=== PATIENT | female | born 1975 | race Caucasian/White ===

== ENCOUNTER 2019-04-15 03:57 | Observation (INO) | payer BC, OTHER ==
[2019-04-15] MEDS ORDERED: SODIUM CHLORIDE 1,000 ML IV STA (04:20)
[2019-04-15] MEDS ORDERED: ACETAMINOPHEN 1000 MG/100 ML VIAL (NON FORMULARY) IVPB ONE (04:46)
--- NOTE | 2019-04-15 04:48 | PDOC ---
History of Present Illness - General Chief Complaint: Syncope/Near Syncope Stated Complaint: SYNCOPE,LACERATION Time Seen by Provider: 04/15/19 04:44 Past History - Past Medical History Allergies/Adverse Reactions: Allergies Allergy/AdvReac Type Severity Reaction Status Date / Time No Known Allergies Allergy Verified 04/15/19 04:16 Home Medications: Ambulatory Orders NK [No Known Home Medication] 05/08/14 COPD: No - Psycho Social/Smoking Cessation Hx Smoking Status: No Smoking History: Never smoked Have you smoked in the past 12 months: No Number of Cigarettes Smoked Daily: 0 Hx Alcohol Use: No Drug/Substance Use Hx: No Substance Use Type: None *Physical Exam - Vital Signs Last Vital Signs Temp Pulse Resp BP Pulse Ox 97.7 F 74 18 95/54 L 98 04/15/19 04:20 04/15/19 04:15 04/15/19 04:15 04/15/19 04:15 04/15/19 04:15 ED Treatment Course - LABORATORY CBC & Chemistry Diagram: 04/16/19 06:40 04/16/19 06:40 Medical Decision Making - Medical Decision Making 04/15/19 06:22 HPI: 43yo F hx "tachycardia" (palpitations x few yrs, told by expansion envelope maker hand due to "tachycardia," given unknown medication that pt does not take) presents from home c/o multiple superficial lacerations and pain to head and neck and L side body s/p syncope with fall w/glass in hand (breaking) this AM, with preceding vertigo, palpitations, and confusion. Hx palpitations xyrs, episodes lasting < 5min and go away on own, happen at anytime without inciting event both at rest and with exertion, worsening in frequency, intermittent. Denies hx syncope. Endorses frequent episodes of vertigo/light-headedness when gets up from sleep to go to the bathroom, but never had syncope. Pt was in [facility] yesterday, went to bed, woke up and went to kitchen for glass of water. In kitchen, pt suddenly felt vertigo, confusion, and palpitations and fell. Endorses LOC and confusion, doesn't remember exactly what happened. +head injury. Glass broke in hand and cut her L side of body on her L elbow/hand/thigh, believes no glass pieces inside her. Last tetanus unknown. Most pain to L hand and head and L neck. No pain meds tried. After falling in kitchen, pt believes she got up and went to the bathroom, but then she was so dizzy and confused she couldn't walk and had to crawl to son's bedroom to wake him up to help. Believes confused for multiple minutes after event. Denies seizure-like movements, incontinence, or tongue-biting. Denies fever, chills, fatigue, headache, dizziness, numbness/ tingling, weakness, vision changes, shortness of breath, cough, chest pain, palpitations, leg swelling, abdominal pain, blood in stool, diarrhea, constipation, nausea, vomiting, dysuria, hematuria, confusion. PCP - Armand San ROS: Constitutional: Negative for chills, fever, fatigue, diaphoresis. HENT: Negative for sore throat, rhinorrhea, congestion. Eyes: Negative for visual disturbance. Respiratory: Negative for shortness of breath, cough, and wheezing. Cardiovascular: Positive for palpitations. Negative for chest pain, and leg swelling. Gastrointestinal: Negative for abdominal pain, blood in stool, constipation, diarrhea, nausea, and vomiting. Genitourinary: Negative for dysuria, flank pain, and hematuria. Musculoskeletal: Positive for L-sided body pain, neck pain. Negative for myalgias, back pain. Skin: Positive for lacerations. Negative for rash. Neurological: Positive for headache, vertigo, light-headedness, syncope. Negative for focal weakness, numbness. Psychiatric/Behavioral: Negative for behavioral problems and confusion. PE: Gen: Alert, NAD, comfortable-appearing. HEENT: PERRL, EOMI, MMM, NC. Diffuse ecchymoses to entire L ear. No raccoon eyes or mireles signs. No conjunctival pallor. Sclera are non-icteric. CV: Regular rate and rhythm. No murmurs, rubs, or gallops. PULM: No resp distress. CTAB, no wheezes, rales, or rhonchi. ABD: soft, NT/ND, no rebound tenderness or guarding, no CVA tenderness. BACK: No TTP of c/t/l-spine. No step-offs or deformities. MSK: Pelvis stable, no TTP. No bony deformities. 2+ pulses in all extremities. NEURO: AAOx3. PERRL. CN 2-12 intact. 5/5 strength in all extremities. Sensation to light touch intact in all extremities. No pronator drift. No dysmetria. No dysdiadochokinesia. No abnormal nystagmus. EXTREMITIES: No cyanosis. No clubbing. No edema. No calf tenderness. Multiple superficial nonbleeding lacerations without foreign bodies to L hand, L elbow, and L thigh. LUE neurovascularly intact - 2+ pulses, sensation intact throughout, 5/5 strength. PSYCH: Normal mood and thought pattern. SKIN: Warm and dry. Normal capillary refill. No rashes. No jaundice. MDM: 43yo F hx "tachycardia" (palpitations x few yrs, told by expansion envelope maker hand due to "tachycardia," given unknown medication that pt does not take) presents from home with multiple superficial lacerations and pain to head and neck and L side body s/p syncope with fall w/glass in hand (breaking) this AM, with preceding vertigo, palpitations, and confusion. Soft BP 95/54 (baseline), other VSS, afebrile, neurologically intact, multiple superficial lacerations and ecchymoses to L side of body. Syncope most likely vasovagal or orthostatic due to presentation; however, hx unknown heart problem ("tachycardia" given unknown meds for) and palpitations concerning for cardiac etiology - r/o ACS/RI or arrythmias (WPW, LGL, Brugada, long/short QT interval, HOCM) with EKG and cardiac profile. Wells 0, PERC rules out PE - no further testing indicated for PE. Also consider infectious etiologies, anemia, thyroid pathology, or metabolic derangements. Hysterectomy - no concern for . No seizure-like activity. Due to description of room spinning, also consider vertigo pathologies such as BPPV. No nystagmus, gait abnormalities, neurologic deficits, or dysdiadochokinesia concerning for central etiology of vertigo such as cerebellar stroke; no nystagmus at this time so HiNTS exam not indicated; no further testing indicated at this time. No hearing loss or tinnitus indicating labyrinthitis, meniere's disease, or CN VIII tumor. Due to confusion, LOC, and significant bruising and e/o trauma on physical exam , obtain CTs of head/c-spine/face to r/o fx. L hand pain and lacerations: superficial, neurovascularly intact, moving all fingers/joints, no e/o tendon injury, XR to r/o retained glass and fx -CBC,CMP,Mg,Phos,Cardiac profile,TSH,UA/UC -CXR -EKG: NSR, 67bpm, QTc 431ms, normal intervals, no TWIs, abnormal ST segment consistent with early repolarization. No e/o acute ischemia, arrhythmia, Tom- Parkinson-White (delta wave), Vppv-Pbvljs-Loxdkk (shortened MN interval), Brugada syndrome, long or short QT interval, HOCM -CT head/c-spine/face -XR L hand -Tylenol for pain -Tetanus (last unknown) -Dispo: likely admit tele obs for syncope eval 04/15/19 06:50 Labs reviewed. No concerning findings. CXR reviewed: no acute pathology XR hand: no e/o large opaque retained body or fx CBC,CMP WBC 5.0 K/mm3 (4.0-10.0) 04/15/19 04:35 RBC 3.96 M/mm3 (3.60-5.2) 04/15/19 04:35 Hgb 11.5 GM/dL (10.7-15.3) 04/15/19 04:35 Hct 35.0 % (32.4-45.2) 04/15/19 04:35 MCV 88.4 fl (80-96) 04/15/19 04:35 MCH 29.1 pg (25.7-33.7) 04/15/19 04:35 MCHC 33.0 g/dl (32.0-36.0) 04/15/19 04:35 RDW 14.3 % (11.6-15.6) 04/15/19 04:35 Plt Count 183 K/MM3 (134-434) 04/15/19 04:35 MPV 9.1 fl (7.5-11.1) 04/15/19 04:35 Absolute Neuts (auto) 3.1 K/mm3 (1.5-8.0) 04/15/19 04:35 Neutrophils % 61.5 % (42.8-82.8) 04/15/19 04:35 Lymphocytes % 29.2 % (8-40) D 04/15/19 04:35 Monocytes % 5.8 % (3.8-10.2) 04/15/19 04:35 Eosinophils % 2.5 % (0-4.5) D 04/15/19 04:35 Basophils % 1.0 % (0-2.0) 04/15/19 04:35 Nucleated RBC % 0 % (0-0) 04/15/19 04:35 Sodium 139 mmol/L (136-145) 04/15/19 04:35 Potassium 4.0 mmol/L (3.5-5.1) 04/15/19 04:35 Chloride 106 mmol/L (98-107) 04/15/19 04:35 Carbon Dioxide 27 mmol/L (21-32) 04/15/19 04:35 Anion Gap 5 MMOL/L (8-16) L 04/15/19 04:35 BUN 19.9 mg/dL (7-18) H 04/15/19 04:35 Creatinine 0.9 mg/dL (0.55-1.3) 04/15/19 04:35 Est GFR (CKD-EPI)AfAm 89.50 04/15/19 04:35 Est GFR (CKD-EPI)NonAf 77.22 04/15/19 04:35 Random Glucose 82 mg/dL (74-106) 04/15/19 04:35 Calcium 8.6 mg/dL (8.5-10.1) 04/15/19 04:35 Phosphorus 4.2 mg/dL (2.5-4.9) 04/15/19 04:35 Magnesium 2.0 mg/dL (1.8-2.4) 04/15/19 04:35 Total Bilirubin 0.1 mg/dL (0.2-1) L 04/15/19 04:35 AST 44 U/L (15-37) H 04/15/19 04:35 ALT 33 U/L (13-61) 04/15/19 04:35 Alkaline Phosphatase 75 U/L (45-117) 04/15/19 04:35 Creatine Kinase 173 U/L (26-192) 04/15/19 04:35 Creatine Kinase Index 0.7 % (0.0-5.0) 04/15/19 04:35 CK-MB (CK-2) 1.3 ng/mL (0.5-3.6) 04/15/19 04:35 Troponin I < 0.02 ng/ml (0.00-0.05) 04/15/19 04:35 Total Protein 6.9 g/dl (6.4-8.2) 04/15/19 04:35 Albumin 3.3 g/dl (3.4-5.0) L 04/15/19 04:35 TSH 2.88 uIU/ml (0.358-3.74) 04/15/19 04:35 04/15/19 07:[address] head/c-spine/face and XR L hand, urine, and orthostatics, admit to hospitalist tele obs syncope. Pt signed out to oncoming team. Discharge - Discharge Information Problems reviewed: Yes Clinical Impression/Diagnosis: Syncope Qualifiers: Syncope type: unspecified Qualified Code(s): R55 - Syncope and collapse Condition: Improved Disposition: HOME - Follow up/Referral - Patient Discharge Instructions - Post Discharge Activity
--- NOTE | 2019-04-15 04:54 | PDOC ---
Attending Attestation - Resident Resident Name: Mylene Morales - ED Attending Attestation I have performed the following: I have examined & evaluated the patient, The case was reviewed & discussed with the resident, I agree w/resident's findings & plan, Exceptions are as noted - HPI HPI: 04/15/19 06:08 Ms. Lang is a 43 yo F who presents to the ER s/p syncopal episode Pt states she was in her usual state of health Went to sleep last night She awoke and went to the kitchen to get water She became vertiginous and fell to the ground, landing on her head and her left hand She then attempted to get to the bathroom? She was unable to get herself to standing and crawled to get help No preceding chest pain, palpitations, focal weakness or numbness No recent fevers or chills - Physicial Exam PE: 04/15/19 04:51 GENERAL: The patient is in no acute distress. HEENT: (+) head trauma, EOMI, PERRLA, left ear bruised bite nml NECK: Normal range of motion, supple, no midline tenderness to palpation LUNGS: Breath sounds equal, clear to auscultation bilaterally. No wheezes, and no crackles. HEART:Regular rate and rhythm, normal S1 and S2 without murmur, rub or gallop. ABDOMEN: Soft, nontender, normoactive bowel sounds. EXTREMITIES: Normal range of motion, no deformities noted NEUROLOGICAL: Cranial nerves II through XII grossly intact. Normal speech. No focal neurological deficits. SKIN: multiple abrasions of the hand and left leg, bruising noted of the left ear 04/15/19 06:10 - Medical Decision Making 04/15/19 04:51 EKG: Twelve-lead EKG was performed and reviewed by me. There is normal sinus rhythm with a normal rate of 67 bpm. The axis is normal. The intervals are normal. ST changes noted in II, III, aVF, v2, v3, v4, t wave inversion aVL 04/15/19 06:11 Laboratory Tests 04/15/19 04/15/19 04/15/19 04:35 04:35 04:35 WBC 5.0 Hgb 11.5 Hct 35.0 Plt Count 183 BUN 19.9 H Creatinine 0.9 Creatine Kinase 173 Creatine Kinase Index 0.7 CK-MB (CK-2) 1.3 Troponin I < 0.02 CT head: pending CT c spine: pending CT cervical spine: pending Tetanus given Will admit Clinical impression: Syncopal episode Head trauma Abrasions
[2019-04-15 04:55] LABS: EOS % 2.5 % (0-4.5); HEMOGLOBIN 11.5 GM/dL (10.7-15.3); LYMPH % 29.2 % (8-40); MCH 29.1 pg (25.7-33.7); MEAN CELL VOLUME 88.4 fl (80-96); MEAN PLT VOLUME 9.1 fl (7.5-11.1); MONO % 5.8 % (3.8-10.2); NEUT % 61.5 % (42.8-82.8); PLATELET COUNT 183 K/MM3 (134-434); RBC 3.96 M/mm3 (3.60-5.2); RDW 14.3 % (11.6-15.6)
[2019-04-15 05:29] LABS: ALBUMIN 3.3 g/dl (3.4-5.0); BILIRUBIN,TOTAL 0.1 mg/dL (0.2-1); BLOOD UREA NITROGEN 19.9 mg/dL (7-18); CALCIUM 8.6 mg/dL (8.5-10.1); CREATININE 0.9 mg/dL (0.55-1.3); TOT PROT 6.9 g/dl (6.4-8.2)
[2019-04-15] MEDS ORDERED: DIPHTH,PERTUSS(ACELL),TET 0.5 ML DISP.SYRIN IM ONE ×2 (05:47→06:04)
[2019-04-15] MEDS ORDERED: ACETAMINOPHEN INJECTION 100 ML IVPB ONE (05:57)
[2019-04-15 06:31] LABS: PHOSPHOROUS 4.2 mg/dL (2.5-4.9)
[2019-04-15] MEDS ORDERED: ACETAMINOPHEN 325 MG TABLET (FP) PO ONE (09:15)
--- NOTE | 2019-04-15 09:20 | PDOC ---
*Physical Exam - Vital Signs Last Vital Signs Temp Pulse Resp BP Pulse Ox 97.7 F 74 18 92/59 L 98 04/15/19 04:20 04/15/19 04:15 04/15/19 04:15 04/15/19 06:45 04/15/19 04:15 - Physical Exam General Appearance: Yes: Nourished, Appropriately Dressed, Thin HEENT: positive: EOMI, LINN, Normal ENT Inspection, Pharynx Normal Neck: positive: Trachea midline, Normal Thyroid, Supple Respiratory/Chest: positive: Lungs Clear, Normal Breath Sounds. negative: Crackles, Wheezing Cardiovascular: positive: Regular Rhythm, Regular Rate, S1, S2. negative: Murmur, Gallop/S3, Gallop/S4 Vascular Pulses: Dorsalis-Pedis (R): 2+, Doralis-Pedis (L): 2+ Gastrointestinal/Abdominal: positive: Normal Bowel Sounds, Soft. negative: Guarding Extremity: positive: Normal Inspection Neurologic: positive: Fully Oriented, Alert, Normal Mood/Affect ED Treatment Course - LABORATORY CBC & Chemistry Diagram: 04/15/19 04:35 04/15/19 04:35 - ADDITIONAL ORDERS Additional order review: Laboratory Results 04/15/19 04/15/19 04/15/19 04:35 04:35 04:35 Sodium 139 Potassium 4.0 Chloride 106 Carbon Dioxide 27 Anion Gap 5 L BUN 19.9 H Creatinine 0.9 Est GFR (CKD-EPI)AfAm 89.50 Est GFR (CKD-EPI)NonAf 77.22 Random Glucose 82 Calcium 8.6 Phosphorus 4.2 Magnesium 2.0 Total Bilirubin 0.1 L AST 44 H ALT 33 Alkaline Phosphatase 75 Creatine Kinase 173 Creatine Kinase Index 0.7 CK-MB (CK-2) 1.3 Troponin I < 0.02 Total Protein 6.9 Albumin 3.3 L TSH 2.88 04/15/19 04:35 RBC 3.96 MCV 88.4 MCHC 33.0 RDW 14.3 MPV 9.1 Neutrophils % 61.5 Lymphocytes % 29.2 D Monocytes % 5.8 Eosinophils % 2.5 D Basophils % 1.0 - Medications Given in the ED: ED Medications Discontinued Medications Generic Name Dose Route Start Last Admin Trade Name Freq PRN Reason Stop Dose Admin Acetaminophen 1,000 mg 04/15/19 04:46 04/15/19 06:09 Ofirmev Injection - IVPB 04/15/19 04:47 1,000 mg ONCE ONE Administration Diphtheria/Tetanus/Acell Pertussis 0.5 ml 04/15/19 05:47 04/15/19 06:10 Boostrix - IM 04/15/19 05:48 0.5 ml .ONCE ONE Administration Medical Decision Making - Medical Decision Making 43yo F hx "tachycardia" (palpitations x few yrs, told by bag making machine operator due to "tachycardia," given unknown medication that pt does not take) presents from home with multiple superficial lacerations and pain to head and neck and L side body s/p syncope with fall w/glass in hand (breaking) this AM, with preceding vertigo, palpitations, and confusion. Soft BP 95/54 (baseline), other VSS, afebrile, neurologically intact, multiple superficial lacerations and ecchymoses to L side of body. -CBC,CMP,Mg,Phos,Cardiac profile,TSH,UA/UC -CXR -EKG: NSR, 67bpm, QTc 431ms, normal intervals, no TWIs, abnormal ST segment consistent with early repolarization. No e/o acute ischemia, arrhythmia -CT head/c-spine/face -XR L hand -Tylenol for pain -Tetanus (last unknown) -Dispo: likely admit tele obs for syncope eval 04/15/19 06:50 Labs reviewed. No concerning findings. CXR reviewed: no acute pathology XR hand: no e/o large opaque retained body or fx CBC,CMP 04/15/19 09:21 Discharge - Discharge Information Problems reviewed: Yes Clinical Impression/Diagnosis: Syncope Qualifiers: Syncope type: unspecified Qualified Code(s): R55 - Syncope and collapse Condition: Stable - Admission Yes - Follow up/Referral Referrals: ON STAFF,NOT [Primary Care Provider] - - Patient Discharge Instructions - Post Discharge Activity
[2019-04-15] MEDS ORDERED: ACETAMINOPHEN 325 MG TABLET (FP) ONE (09:21)
--- NOTE | 2019-04-15 09:26 | HP ---
CHIEF COMPLAINT: fall, loss of consciousness PCP: HISTORY OF PRESENT ILLNESS: Patient is a 43 year old female with history of uterine fibroids (s/p hysterectomy), ?tachycardia, presents after a syncopal episode. Patient reports that she woke up approx 2AM feeling thirsty. She went to her kitchen to get a glass of water, and felt dizzy, with palpitations. Patient states she fell, and lost consciousness. When she awake, there was shattered glass, and blood from laceration on her left upper extremity. Denies loss of bowel. bladder tone. Patient states she has home camera that recorded the event, and she was on ground for approx 1 minute. Patient reports that she has followed up with peel oven tender Dr. Neal at [facility] who performed Stress test (reportedly negative), as well as Holter monitor which revealed tachycardia. Patient states she was prescribed unknown medication for this, however the medications have since been discontinued. Currently, patient feels in normal state of health. ER course was notable for: (1) EKG revealed (2) CT head, cervical spine negative for acute pathology. (3) Recent Travel: denies PAST MEDICAL HISTORY: uterine fibroids, ?tachycardia PAST SURGICAL HISTORY: hysterectomy Social History: Currently lives in home with her children. Smoking: denies Alcohol: Occasionally drinks 1-2 alcoholic drinks on holiday Drugs: denies Allergies No Known Allergies Allergy (Verified 04/15/19 04:16) HOME MEDICATIONS: Home Medications Medication Instructions Recorded NK [No Known Home Medication] 05/08/14 REVIEW OF SYSTEMS CONSTITUTIONAL: Absent: fever, chills, diaphoresis, generalized weakness, malaise, loss of appetite, weight change HEENT: Absent: rhinorrhea, nasal congestion, throat pain, throat swelling, difficulty swallowing, mouth swelling, ear pain, eye pain, visual changes CARDIOVASCULAR: Absent: chest pain, syncope, palpitations, irregular heart rate, lightheadedness , peripheral edema RESPIRATORY: Absent: cough, shortness of breath, dyspnea with exertion, orthopnea, wheezing, stridor, hemoptysis GASTROINTESTINAL: Absent: abdominal pain, abdominal distension, nausea, vomiting, diarrhea, constipation, melena, hematochezia GENITOURINARY: Absent: dysuria, frequency, urgency, hesitancy, hematuria, flank pain, genital pain MUSCULOSKELETAL: Admits: neck pain. Absent: myalgia, arthralgia, joint swelling, back pain. SKIN: Absent: rash, itching, pallor HEMATOLOGIC/IMMUNOLOGIC: Absent: easy bleeding, easy bruising, lymphadenopathy, frequent infections ENDOCRINE: Absent: unexplained weight gain, unexplained weight loss, heat intolerance, cold intolerance NEUROLOGIC: Admits: headache (resolved). Absent: focal weakness or paresthesias, dizziness, unsteady gait, seizure, mental status changes, bladder or bowel incontinence PSYCHIATRIC: Absent: anxiety, depression, suicidal or homicidal ideation, hallucinations. PHYSICAL EXAMINATION Vital Signs - 24 hr 04/15/19 04/15/19 04/15/19 04:15 04:20 06:45 Temperature 97.7 F Pulse Rate 74 Respiratory 18 Rate Blood Pressure 95/54 L Blood Pressure 92/59 L [Left Arm] O2 Sat by Pulse 98 Oximetry (%) GENERAL: Awake, alert, and fully oriented, in no acute distress. HEAD: Normal with no signs of trauma. EYES: Pupils equal, round and reactive to light, extraocular movements intact, sclera anicteric, conjunctiva clear. No lid lag. EARS, NOSE, THROAT: Ears normal, nares patent, oropharynx clear without exudates. Moist mucous membranes. NECK: Normal range of motion, supple without lymphadenopathy, JVD, or masses. LUNGS: Breath sounds equal, clear to auscultation bilaterally. No wheezes, and no crackles. No accessory muscle use. HEART: Regular rate and rhythm, normal S1 and S2 without murmur, rub or gallop. ABDOMEN: Soft, nontender, not distended, normoactive bowel sounds, no guarding, no rebound, no masses. No hepatomegaly or splenomegaly. MUSCULOSKELETAL: Normal range of motion at all joints. No bony deformities or tenderness. No CVA tenderness. UPPER EXTREMITIES: 2+ pulses, warm, well-perfused. No cyanosis. No clubbing. No peripheral edema. LOWER EXTREMITIES: 2+ pulses, warm, well-perfused. No calf tenderness. No peripheral edema. NEUROLOGICAL: Cranial nerves II-XII intact. Normal speech. Strength 5/5 bilateral upper and lower extremities. Sensation grossly intact bilaterally. PSYCHIATRIC: Cooperative. Good eye contact. Appropriate mood and affect. SKIN: Warm, dry. Laceration at left hand and left elbow Laboratory Results - last 24 hr 04/15/19 04/15/19 04/15/19 04:35 04:35 04:35 WBC 5.0 RBC 3.96 Hgb 11.5 Hct 35.0 MCV 88.4 MCH 29.1 MCHC 33.0 RDW 14.3 Plt Count 183 MPV 9.1 Absolute Neuts (auto) 3.1 Neutrophils % 61.5 Lymphocytes % 29.2 D Monocytes % 5.8 Eosinophils % 2.5 D Basophils % 1.0 Nucleated RBC % 0 Sodium 139 Potassium 4.0 Chloride 106 Carbon Dioxide 27 Anion Gap 5 L BUN 19.9 H Creatinine 0.9 Est GFR (CKD-EPI)AfAm 89.50 Est GFR (CKD-EPI)NonAf 77.22 Random Glucose 82 Calcium 8.6 Phosphorus Magnesium Total Bilirubin 0.1 L AST 44 H ALT 33 Alkaline Phosphatase 75 Creatine Kinase 173 Creatine Kinase Index 0.7 CK-MB (CK-2) 1.3 Troponin I < 0.02 Total Protein 6.9 Albumin 3.3 L TSH 04/15/19 04:35 WBC RBC Hgb Hct MCV MCH MCHC RDW Plt Count MPV Absolute Neuts (auto) Neutrophils % Lymphocytes % Monocytes % Eosinophils % Basophils % Nucleated RBC % Sodium Potassium Chloride Carbon Dioxide Anion Gap BUN Creatinine Est GFR (CKD-EPI)AfAm Est GFR (CKD-EPI)NonAf Random Glucose Calcium Phosphorus 4.2 Magnesium 2.0 Total Bilirubin AST ALT Alkaline Phosphatase Creatine Kinase Creatine Kinase Index CK-MB (CK-2) Troponin I Total Protein Albumin TSH 2.88 ASSESSMENT/PLAN: Patient is a 43 year old female with history of uterine fibroids (s/p hysterectomy), tachycardia, presents after a syncopal episode. Syncopal episode -Unclear likely vasovagal. Patient admits prior cardiac workup which appears negative with exception of unclear tachycardia. Patient with reported negative orthostatics in ED. Less likely seizure activity as no jerking motions noted upon recording of syncopal episode. Negative bowel/ bladder incontinence. -CT head, cervical spine, facial bones negative for acute pathology -Hand Xray reveals no foreign body, free air, or fracture. -EKG reveals normal sinus rhythm with early repolarization. -Initial troponin 0.02 x2 -Telemetry observation -Cardiology evaluation (Dr. Serra) appreciated -Cardiac transthoracic ECHO FEN -No IV fluids indicated. -Follow BMP -Regular diet Prohylaxis -Lovenox 40mg subq daily Disposition -Telemetry observation Visit type - Emergency Visit Emergency Visit: Yes ED Registration Date: 04/15/19 Care time: The patient presented to the Emergency Department on the above date and was hospitalized for further evaluation of their emergent condition. - New Patient This patient is new to me today: Yes Date on this admission: 04/15/19 - Critical Care Critical Care patient: No ATTENDING PHYSICIAN STATEMENT I saw and evaluated the patient. I reviewed the resident's note and discussed the case with the resident. I agree with the resident's findings and plan as documented. SUBJECTIVE: OBJECTIVE: ASSESSMENT AND PLAN:
[2019-04-15 10:09] LABS: URINE APPEARANCE CLEAR; URINE BILIRUBIN NEGATIVE (NEGATIVE); URINE COLOR YELLOW; URINE GLUCOSE (UA) NEGATIVE (NEGATIVE); URINE KETONE NEGATIVE (NEGATIVE); URINE LEUK ESTERASE NEGATIVE (NEGATIVE); URINE NITRITE NEGATIVE (NEGATIVE); URINE PROTEIN NEGATIVE (NEGATIVE); URINE UROBILINOGEN 0.2 mg/dL (0.2-1.0)
--- NOTE | 2019-04-15 11:34 | CON.CARD ---
Consult Consult Specialty:: cardio - History of Present Illness Chief Complaint: syncope History of Present Illness: 43 year old female here with fainting spell. woke up approx 2AM feeling thirsty. She went to her kitchen to get a glass of water, feeling woozy/dizzy while walking. awoke on floor with shattered glass around here, and blood from laceration on her left upper extremity. cannot recall when she noted palpitations, and whether occurred immediately prior to syncope or not--"i get them all the time". did not feel need to urinate. though often feels the palpitations and dizziness when gets up to urinate overnight. no sz stigmata/incontinence noted. Patient states she has home camera that recorded the event, and she was on ground for approx 1 minute. no seizure type jerking on the video she says. review of records from EP at [facility] ([facility]): presented to him early 2017 for frequent palpitations with associated dizziness/ LH. 9 day monitor done, showed inappropriate sinus tach to 130s bpm--correlated with palps/racing and dizziness. home phone based pulse up to 150s at time of sx's. due to baseline SBP 90s, he rec'd trial ivabridine--? how long she took before self-d/c'd. ETT done 2016, unremarkable. Echo not done VSs and labs in ER are all normal (systolic bp 90s-->100s) PMH: fibroids s/p ALBERT - Alcohol/Substance Use Hx Alcohol Use: No - Smoking History Smoking history: Never smoked Have you smoked in the past 12 months: No Aproximately how many cigarettes per day: 0 Home Medications - Allergies Allergies/Adverse Reactions: Allergies Allergy/AdvReac Type Severity Reaction Status Date / Time No Known Allergies Allergy Verified 04/15/19 04:16 - Home Medications Home Medications: Ambulatory Orders NK [No Known Home Medication] 05/08/14 Vital Signs: Vital Signs Temperature 97.7 F 04/15/19 04:20 Pulse Rate 73 04/15/19 10:56 Respiratory Rate 18 04/15/19 10:56 Blood Pressure 100/65 04/15/19 10:56 O2 Sat by Pulse Oximetry (%) 99 04/15/19 10:56 - Other Data Labs, Other Data: CBC, BMP 04/15/19 04:35 04/15/19 04:35 Troponin, BNP 04/15/19 04:35 Troponin I < 0.02 Troponin, BNP 04/15/19 04:35 Troponin I < 0.02 Assessment/Plan ECG: NSR, normal intervals incl QT. no delta wave. diffuse ST elevations in early repol pattern--similar to prior though early repol findings more pronounced CXR: clear lungs/pleura ETT 2016 ([facility]): >12 mets, "excellent exercise tolerance", + dizziness sx's, HR to 150s, "appropriate BP and HR response", unremarkable ST segments, no arrhythmia syncope: -preceded by palpitations -suspect vasovagal or orthostasis given occurred in middle of the night when walked to kitchen from bed -will review outside records ([facility]) re: prior w/u and prior history -ECG normal intervals, + early repol findings diffusely -d/w'd Dr. Neal (EP): she will be monitored on tele here and have echo on Wednesday -if all testing here is benign, she will f/u with EP for prolonged holter/event monitoring -check orthostatics
--- NOTE | 2019-04-15 12:15 | PN ---
Teaching Attending Note Name of Resident: González Steele ATTENDING PHYSICIAN STATEMENT I saw and evaluated the patient. I reviewed the resident's note and discussed the case with the resident. I agree with the resident's findings and plan as documented. SUBJECTIVE: Feels well currently. No lightheadedness/dizziness/CP/palpitations currently. No limb numbness/weakness/tingling. No POOL/visual disturbance. OBJECTIVE: Afebrile, Hemodynamically Stable. Last Vital Signs Temp Pulse Resp BP Pulse Ox 97.7 F 73 18 100/65 99 04/15/19 04:20 04/15/19 10:56 04/15/19 10:56 04/15/19 10:56 04/15/19 10:56 HEENT - Atraumatic, Normocephalic. Heart - S1, S2, RRR Lungs - clear to auscultation. Abdomen - Soft, non-tender. Bowel Sounds normal. Extremities - no edema, no calf tenderness. Small laceration to palm of L hand Neuro - AAO x 3. Tone/Power normal all extremities. Laboratory Results - last 24 hr 04/15/19 04/15/19 04/15/19 04:35 04:35 04:35 WBC 5.0 RBC 3.96 Hgb 11.5 Hct 35.0 MCV 88.4 MCH 29.1 MCHC 33.0 RDW 14.3 Plt Count 183 MPV 9.1 Absolute Neuts (auto) 3.1 Neutrophils % 61.5 Lymphocytes % 29.2 D Monocytes % 5.8 Eosinophils % 2.5 D Basophils % 1.0 Nucleated RBC % 0 Sodium 139 Potassium 4.0 Chloride 106 Carbon Dioxide 27 Anion Gap 5 L BUN 19.9 H Creatinine 0.9 Est GFR (CKD-EPI)AfAm 89.50 Est GFR (CKD-EPI)NonAf 77.22 Random Glucose 82 Calcium 8.6 Phosphorus Cancelled Magnesium Cancelled Total Bilirubin 0.1 L AST 44 H ALT 33 Alkaline Phosphatase 75 Creatine Kinase 173 Creatine Kinase Index 0.7 CK-MB (CK-2) 1.3 Troponin I < 0.02 Total Protein 6.9 Albumin 3.3 L TSH Cancelled Urine Color Urine Appearance Urine pH Ur Specific Sandborn Urine Protein Urine Glucose (UA) Urine Ketones Urine Blood Urine Nitrite Urine Bilirubin Urine Urobilinogen Ur Leukocyte Esterase 04/15/19 04/15/19 04:35 09:40 WBC RBC Hgb Hct MCV MCH MCHC RDW Plt Count MPV Absolute Neuts (auto) Neutrophils % Lymphocytes % Monocytes % Eosinophils % Basophils % Nucleated RBC % Sodium Potassium Chloride Carbon Dioxide Anion Gap BUN Creatinine Est GFR (CKD-EPI)AfAm Est GFR (CKD-EPI)NonAf Random Glucose Calcium Phosphorus 4.2 Magnesium 2.0 Total Bilirubin AST ALT Alkaline Phosphatase Creatine Kinase Creatine Kinase Index CK-MB (CK-2) Troponin I Total Protein Albumin TSH 2.88 Urine Color Yellow Urine Appearance Clear Urine pH 6.0 Ur Specific Sandborn 1.020 Urine Protein Negative Urine Glucose (UA) Negative Urine Ketones Negative Urine Blood Negative Urine Nitrite Negative Urine Bilirubin Negative Urine Urobilinogen 0.2 Ur Leukocyte Esterase Negative Current Medications Generic Name Dose Route Start Last Admin Trade Name Freq PRN Reason Stop Dose Admin Enoxaparin Sodium 40 mg 04/16/19 10:00 Lovenox - SQ DAILY MATT Sodium Chloride 1,000 mls @ 125 mls/hr 04/15/19 04:20 04/15/19 06:09 Normal Saline - IV 04/15/19 12:19 125 mls/hr ASDIR STA Administration Home Medications Medication Instructions Recorded NK [No Known Home Medication] 05/08/14 ASSESSMENT AND PLAN: 43 year old female with history of uterine fibroids (s/p hysterectomy), history of palpitations/tachycardia, previously worked up at [facility], presents after a syncopal episode at home while getting water in the middle of the night. Episode was preceeded by lightheadedness and palpitations. No CP/visual disturbance/diaphoresis, nausea. No bladder or bowel incontinence. 1. Syncope, etiology unclear, possibly vasovagal versus arrhythmogenic ( preceding palpitations) CT Head/C-Spine negative for acute findings ECG - NSR, early repolarization findings. Orthostatic vitals Telemetry observation, likely Echo (unable to perform on weekend, next avail 04/17) Cardiology evaluation. DVT Px - Lovenox SQ.
[2019-04-15 13:06] VITALS: BMI 19.5
[2019-04-15] MEDS ORDERED: ACETAMINOPHEN 325 MG TABLET (FP) PO PRN (15:47)
--- NOTE | 2019-04-15 23:15 | EKG ---
Test Reason : Blood Pressure : / mmHG Vent. Rate : 067 BPM Atrial Rate : 067 BPM P-R Int : 182 ms QRS Dur : 094 ms QT Int : 408 ms P-R-T Axes : 068 081 076 degrees QTc Int : 431 ms NORMAL SINUS RHYTHM EARLY REPOLARIZATION NORMAL ECG WHEN COMPARED WITH ECG OF 04-JUN-2009 21:15, NO SIGNIFICANT CHANGE WAS FOUND Confirmed by ZACH EWBB MD ([id number]) on 04/15/2019 11:14:49 PM Referred By: Confirmed By:ZACH WEBB MD
[2019-04-16 07:10] LABS: HEMATOCRIT 34.9 % (32.4-45.2); HEMOGLOBIN 11.5 GM/dL (10.7-15.3); MCH 29.2 pg (25.7-33.7); MCHC 33.1 g/dl (32.0-36.0); MEAN CELL VOLUME 88.5 fl (80-96); MEAN PLT VOLUME 9.1 fl (7.5-11.1); PLATELET COUNT 173 K/MM3 (134-434); RBC 3.94 M/mm3 (3.60-5.2); RDW 14.2 % (11.6-15.6)
[2019-04-16 07:42] LABS: BLOOD UREA NITROGEN 15.9 mg/dL (7-18); CALCIUM 8.8 mg/dL (8.5-10.1); CREATININE 0.8 mg/dL (0.55-1.3); POTASSIUM 4.1 mmol/L (3.5-5.1)
--- NOTE | 2019-04-16 09:58 | PN ---
Progress Note, Physician Chief Complaint: fainting History of Present Illness: feeling dizzy in bed this am, not severe/presyncopal. no palpitations. BP 80s at that time. no cp, sob, swelling - Current Medication List Current Medications: Active Medications Acetaminophen (Tylenol -) 650 mg PO Q6H PRN PRN Reason: PAIN LEVEL 1-5 Last Admin: 04/15/19 15:56 Dose: 650 mg Enoxaparin Sodium (Lovenox -) 40 mg SQ DAILY MATT - Objective Vital Signs: Vital Signs Temperature 98.0 F 04/16/19 06:20 Pulse Rate 80 04/16/19 06:20 Respiratory Rate 18 04/16/19 06:20 Blood Pressure 94/51 L 04/16/19 06:20 O2 Sat by Pulse Oximetry (%) 98 04/15/19 21:00 Constitutional: Yes: Well Nourished, No Distress, Calm Cardiovascular: Yes: Regular Rate and Rhythm, S1, S2. No: Gallop, Murmur Respiratory: Yes: Regular, CTA Bilaterally. No: Accessory Muscle Use, Rales Extremities: No: Cold Edema: No Neurological: Yes: Alert, Oriented Psychiatric: No: Agitated Labs: CBC, BMP 04/16/19 06:40 04/16/19 06:40 Assessment/Plan ECG: NSR, normal intervals incl QT. no delta wave. diffuse ST elevations in early repol pattern--similar to prior though early repol findings more pronounced CXR: clear lungs/pleura ETT 2016 ([facility]): >12 mets, "excellent exercise tolerance", + dizziness sx's, HR to 150s, "appropriate BP and HR response", unremarkable ST segments, no arrhythmia syncope: -preceded by palpitations -suspect vasovagal or orthostasis given occurred in middle of the night when walked to kitchen from bed -will review outside records ([facility]) re: prior w/u and prior history -ECG normal intervals, + early repol findings diffusely -d/w'd Dr. Neal (EP): she will be monitored on here and have echo on Wednesday -if all testing here is benign, she will f/u with EP for prolonged holter/event monitoring -not orthostatic here -baseline BP runs 90s per prior notes: has been 90s with early AM reading of 80s today--given no tachycardia at time of this hypotension and dizzy sx's, this is very likely neurocardiogenic etiology. rec'd trial of fludrocortisone 0.1 qd while here to assess sx response and, if she responds, for prevention of future syncope with injury. she and boyfriend decline new meds. IF ECHO OK TOMORROW, PLAN IS DISCHARGE WITH EP F/U
[2019-04-16] MEDS: ENOXAPARIN NA (PORCINE) 40 MG/0.4 ML DISP.SYRIN SQ SCH (10:30)
--- NOTE | 2019-04-16 19:08 | PN ---
Progress Note (short form) - Note Progress Note: SUBJECTIVE: Feeling dizzy this AM, SBP 80s. No limb numbness/weakness/tingling. No POOL/visual disturbance. OBJECTIVE: Afebrile, Borderline BP. Orthostatic vitals negative Last Vital Signs Temp Pulse Resp BP Pulse Ox 98.0 F 78 18 92/58 L 98 04/16/19 14:00 04/16/19 14:00 04/16/19 10:00 04/16/19 14:00 04/16/19 09:00 Heart - S1, S2, RRR Lungs - clear to auscultation. Abdomen - Soft, non-tender. Bowel Sounds normal. Extremities - no edema, no calf tenderness. Small laceration to palm of L hand Neuro - AAO x 3. Tone/Power normal all extremities. Laboratory Results - last 24 hr 04/16/19 04/16/19 06:40 06:40 WBC 4.0 RBC 3.94 Hgb 11.5 Hct 34.9 MCV 88.5 MCH 29.2 MCHC 33.1 RDW 14.2 Plt Count 173 MPV 9.1 Sodium 140 Potassium 4.1 Chloride 107 Carbon Dioxide 28 Anion Gap 5 L BUN 15.9 Creatinine 0.8 Est GFR (CKD-EPI)AfAm 103.19 Est GFR (CKD-EPI)NonAf 89.04 Random Glucose 86 Calcium 8.8 TSH 1.66 Current Medications Generic Name Dose Route Start Last Admin Trade Name Freq PRN Reason Stop Dose Admin Acetaminophen 650 mg 04/15/19 15:47 04/15/19 15:56 Tylenol - PO 650 mg Q6H PRN Administration PAIN LEVEL 1-5 Enoxaparin Sodium 40 mg 04/16/19 10:00 04/16/19 10:30 Lovenox - SQ 40 mg DAILY MATT Administration Home Medications Medication Instructions Recorded NK [No Known Home Medication] 05/08/14 ASSESSMENT AND PLAN: 43 year old female with history of uterine fibroids (s/p hysterectomy), history of palpitations/tachycardia, previously worked up at [place], presents after a syncopal episode at home while getting water in the middle of the night. Episode was preceded by lightheadedness and palpitations. No CP/visual disturbance/diaphoresis, nausea. No bladder or bowel incontinence. 1. Syncope, etiology unclear, possibly vasovagal versus arrhythmogenic ( preceding palpitations) CT Head/C-Spine negative for acute findings ECG - NSR, early repolarization findings. Continue Telemetry observation Echo in AM Cardiology evaluation appreciated - Recommended for trial of Fludrocortisone but declined as per Cardio. For follow up as out-patient for EP for prolonged holter/event monitoring. DVT Px - Lovenox SQ Visit type - Emergency Visit Emergency Visit: Yes ED Registration Date: 04/15/19 Care time: The patient presented to the Emergency Department on the above date and was hospitalized for further evaluation of their emergent condition. - New Patient This patient is new to me today: No - Critical Care Critical Care patient: No - Discharge Referral Referred to [facility] Med P[facility].: No
[2019-04-17 09:04] VITALS: BP 120/56; PULSE 75; TEMP 97.2
[2019-04-17] MEDS: ENOXAPARIN NA (PORCINE) 40 MG/0.4 ML DISP.SYRIN SQ SCH (09:56)
--- NOTE | 2019-04-17 11:21 | ECHO ---
Name: LOIS ALANIZ Exam:Adult Echocardiogram Study Date: 04/17/2019 09:07 AM Age: 43 yrs Height: 65 in Weight: 117 lb BSA: 1.6 m2 MMode/2D Measurements & Calculations IVSd: 0.83 cm Ao root diam: 2.4 cm LVIDd: 3.3 cm LA dimension: 2.5 cm LVIDs: 2.2 cm ACS: 1.9 cm LVPWd: 0.60 cm EDV(Teich): 44.1 ml LVOT diam: 1.8 cm ESV(Teich): 16.3 ml RV S Keven: 11.4 cm/sec Doppler Measurements & Calculations MV E max keven: 81.9 cm/sec Ao V2 max: 112.7 cm/sec MV A max keven: 75.5 cm/sec Ao max P.1 mmHg MV E/A: 1.1 Ao V2 mean: 82.2 cm/sec MV dec time: 0.21 sec Ao mean P.0 mmHg Ao V2 VTI: 24.9 cm ELISA(I,D): 1.7 cm2 ELISA(V,D): 2.0 cm2 LV V1 max P.3 mmHg MR max keven: 306.2 cm/sec LV V1 mean P.6 mmHg MR max P.5 mmHg LV V1 max: 91.3 cm/sec LV V1 mean: 59.4 cm/sec LV V1 VTI: 18.0 cm SV(LVOT): 43.4 ml TR max keven: 178.0 cm/sec TR max P.7 mmHg PA V2 max: 74.0 cm/sec PI end-d keven: 75.5 cm/sec PA max P.2 mmHg Med Peak E' Keven: 10.7 cm/sec Med E/e': 7.6 Lat Peak E' Keven: 10.9 cm/sec Lat E/e': 7.5 Procedure A complete two-dimensional transthoracic echocardiogram was performed (2D, M-mode, Doppler and color flow Doppler). Left Ventricle The left ventricle is normal in size. Left ventricular systolic function is normal. Ejection Fraction = 60- 65%. No regional wall motion abnormalities noted. Right Ventricle The right ventricle is normal size. The right ventricular systolic function is normal. Atria The left atrial size is normal. Right atrial size is normal. Mitral Valve There is mild mitral annular calcification. There is mild mitral regurgitation. Tricuspid Valve The tricuspid valve is normal in structure and function. There is mild tricuspid regurgitation. Right ventricular systolic pressure is normal. Aortic Valve There is mild aortic sclerosis.;. No aortic regurgitation is present. Pulmonic Valve The pulmonic valve is not well visualized. Great Vessels The aortic root is normal size. Pericardium/Pleura There is no pericardial effusion. Interpretation Summary The left ventricle is normal in size. Left ventricular systolic function is normal. No regional wall motion abnormalities noted. Ejection Fraction = 60-65%. The right ventricular systolic function is normal. The left atrial size is normal. Right atrial size is normal. There is mild mitral annular calcification. There is mild mitral regurgitation. There is mild tricuspid regurgitation. Right ventricular systolic pressure is normal. There is mild aortic sclerosis. There is no pericardial effusion. Steven Montejo MD 04/17/2019 11:20 AM
--- NOTE | 2019-04-17 12:55 | PN ---
Teaching Attending Note Name of Resident: Davide Waters ATTENDING PHYSICIAN STATEMENT I saw and evaluated the patient. I reviewed the resident's note and discussed the case with the resident. I agree with the resident's findings and plan as documented. SUBJECTIVE: Feels ok. No limb numbness/weakness/tingling. No POOL/visual disturbance. OBJECTIVE: Afebrile, Borderline BP. Orthostatic vitals negative Last Vital Signs Temp Pulse Resp BP Pulse Ox 97.2 F L 75 18 120/56 L 100 04/17/19 09:00 04/17/19 09:00 04/17/19 09:00 04/17/19 09:00 04/17/19 09:00 Heart - S1, S2, RRR Lungs - clear to auscultation. Abdomen - Soft, non-tender. Bowel Sounds normal. Extremities - no edema, no calf tenderness. Small laceration to palm of L hand Neuro - AAO x 3. LINN. No Nystagmus. Tone/Power normal all extremities. Current Medications Generic Name Dose Route Start Last Admin Trade Name Freq PRN Reason Stop Dose Admin Acetaminophen 650 mg 04/15/19 15:47 04/15/19 15:56 Tylenol - PO 650 mg Q6H PRN Administration PAIN LEVEL 1-5 Enoxaparin Sodium 40 mg 04/16/19 10:00 04/17/19 09:56 Lovenox - SQ Not Given DAILY MATT Home Medications Medication Instructions Recorded NK [No Known Home Medication] 05/08/14 ASSESSMENT AND PLAN: 43 year old female with history of uterine fibroids (s/p hysterectomy), history of palpitations/tachycardia, previously worked up at [place], presents after a syncopal episode at home while getting water in the middle of the night. Episode was preceded by lightheadedness and palpitations. No CP/visual disturbance/diaphoresis, nausea. No bladder or bowel incontinence. 1. Syncope, etiology unclear, possibly vasovagal versus arrhythmogenic ( preceding palpitations) CT Head/C-Spine negative for acute findings ECG - NSR, early repolarization findings. No telemonitoring events. Echo - normal LV function. Cardiology evaluation appreciated - Recommended for trial of Fludrocortisone but patient declined. For follow up as out-patient for EP for prolonged holter/ event monitoring. Medically and Neurologically stable for discharge in the care of her for out-patient Cardio/EP follow up.
--- NOTE | 2019-04-17 16:59 | DS ---
Physical Exam: SUBJECTIVE: Patient seen and examined. States that she felt dizzy during interview while sitting. Denies chest pain, SOB, abd pain, chills, fever. Complains that she has had intermittent headaches over the last few weeks. OBJECTIVE: Vital Signs Period Temp Pulse Resp BP Sys/Orellana Pulse Ox Last 24 Hr 97.2 F-97.8 F 69-86 18-20 94-120/56-83 98-100 PHYSICAL EXAM GENERAL: The patient is awake, alert, and fully oriented, in no acute distress. HEAD: Normal with no signs of trauma. EYES: PERRL, EOMI, no scleral icteris ENT: MMM NECK: Trachea midline, full range of motion, supple. LUNGS: Breath sounds equal, clear to auscultation bilaterally, no wheezes, no crackles, no accessory muscle use. HEART: Regular rate and rhythm, S1, S2 without murmur, rub or gallop. ABDOMEN: Soft, nontender, nondistended, normoactive bowel sounds, no guarding, no rebound EXTREMITIES: 2+ pulses, warm, well-perfused, no edema. NEUROLOGICAL: Normal speech, gait not observed. PSYCH: Normal mood, normal affect. SKIN: Warm, dry, normal turgor, no rashes or lesions noted. LABS HOSPITAL COURSE: Date of Admission:04/15/19 Date of Discharge: 04/17/19 43 year old female with history of uterine fibroids (s/p hysterectomy), tachycardia, presented to the ED after a syncopal episode. Admitted for a syncope workup. Patient had a CT of her head, cervical spine and facial bones completed which was negative for fractures and bleeding. CXR completed without evidence of pneumonia. Patient came in with a laceration on her left hand and had xrays completed which were negative for fracture or foreign bodies. Patient was seen by cardiology and had an ECHO completed. ECHO did not show any significant abnormalities. Patient was offered a trial of Fludrocortisone which she declined. Cardiac enzymes were negative on this admission. Cardiology recommended prolonged rhythm monitoring as outpatient. Patient discharged with recommendations to follow up with neurology and cardiology. Patient stable for discharge at this time. Minutes to complete discharge: 36 Discharge Summary Problems reviewed: Yes Reason For Visit: SYNCOPE Condition: Improved - Instructions Diet, Activity, Other Instructions: You presented to the hospital after fainting. You had imaging of your head, cervical spine, and facial bones completed which was negative for fractures or bleeding. You had an xray completed of your hand which was negative for any foreign bodies or fracture. You were seen by cardiology and had an ECHO completed. Cardiology recommended starting a trial of Fludrocortisone but you declined at this time. The results of your ECHO were without any significant abnormalities. Your cardiac enzymes were negative on this admission. Please follow up with the doctors recommended below for continuing care. Follow up with the following physicians: 1. Please follow up with your primary care provider within one week of discharge for further management of your medical conditions. 2. Please follow up with your ssis developer within one week of discharge, you were seen by cardiology here (Dr. Serra) who recommended follow up with your ssis developer for prolonged holter/event monitoring. 3. You complained of intermittent headaches/dizziness while admitted here. We recommend follow up with a neurologist. If you do not have a neurologist, a referral has been included for you. Activity and Diet 1. You are being discharged home. Recommend daily exercise to strengthen your muscles. 2. Please continue to drink plenty of fluids. Continue all your other medications as prescribed Please return to the ER if you have any signs or symptoms of chest pain, shortness of breath, uncontrollable fever, chills, nausea, vomiting, numbness, tingling, or weakness in any part of your body, changes in vision, or slurred speech. Please return to the ER if symptoms persist, worsen, or new symptoms arise. Referrals: Duke Serra MD [Staff Physician] - Allen Padron MD [Staff Physician] - ON STAFF,NOT [Primary Care Provider] - Disposition: HOME - Home Medications Comprehensive Discharge Medication List: Ambulatory Orders NK [No Known Home Medication] 05/08/14 This patient is new to me today: Yes Date on this admission: 04/17/19 Emergency Visit: Yes ED Registration Date: 04/15/19 Care time: The patient presented to the Emergency Department on the above date and was hospitalized for further evaluation of their emergent condition. Critical Care patient: No - Discharge Referral Referred to [facility] Med P.C.: No ATTENDING PHYSICIAN STATEMENT I saw and evaluated the patient. I reviewed the resident's note and discussed the case with the resident. I agree with the resident's findings and plan as documented. SUBJECTIVE: OBJECTIVE: ASSESSMENT AND PLAN:
== END 2019-04-17 14:35 | disposition home or self-care (01) ==
LOC: JER 03:57 → JERBED 09:26 → J4W 11:26
PROC: 3E033NZ Introduction of Analgesics, Hypnotics, Sedatives into Peripheral Vein, Percutaneous Approach (ICD-10-PCS; principal; 2019-04-15)
PROC: 3E0337Z Introduction of Electrolytic and Water Balance Substance into Peripheral Vein, Percutaneous Approach (ICD-10-PCS; 2019-04-15)
PROC: 3E0234Z Introduction of Serum, Toxoid and Vaccine into Muscle, Percutaneous Approach (ICD-10-PCS; 2019-04-15)
DX: R55 Syncope and collapse (principal); S61.412A Laceration without foreign body of left hand, initial encounter; S09.90XA Unspecified injury of head, initial encounter; W18.39XA Other fall on same level, initial encounter; Y93.89 Activity, other specified; Y92.008 Other place in unspecified non-institutional (private) residence as the place of occurrence of the external cause
CPT/HCPCS: 36415; 70450-TC; 70486-TC; 71045-TC-FY; 72125-TC; 73130-TC-LT-FY; 80048; 80053; 81003; 82550; 82553; 83735; 84100; 84443; 84484; 85025; 85027; 87086; 90715; 93005; 93010; 93306-TC; 99285-25; G0378; J0131; J7030

== ENCOUNTER 2019-06-20 09:26 | Emergency (ER) | payer OTHER ==
[2019-06-20 09:47] VITALS: BMI 18.6
--- NOTE | 2019-06-20 11:54 | PDOC ---
History of Present Illness - General Chief Complaint: Cold Symptoms Stated Complaint: HEADACHE/SORE THROAT History Source: Patient Exam Limitations: No Limitations - History of Present Illness Initial Comments: 06/20/19 11:43 44 y/o female presents the emergency room with nasal congestion with intermittent runny nose associated with bloody nose worsened with nose blowing in the morning. Patient also complaining of frontal headache sore throat, and dry cough for the past 2 days. Patient states recently traveled to [place] 2 weeks ago but denies any sick contacts. Patient has no abdominal pain, nausea vomiting diarrhea rash, or visual changes. Is this a multiple visit Asthma Patient?: No Timing/Duration: other Severity: mild Associated Symptoms: reports: cough, headaches Past History - Travel Traveled outside of the country in the last 30 days: No Close contact w/someone who was outside of country & ill: No - Past Medical History Allergies/Adverse Reactions: Allergies Allergy/AdvReac Type Severity Reaction Status Date / Time No Known Allergies Allergy Verified 04/15/19 04:16 Home Medications: Ambulatory Orders NK [No Known Home Medication] 05/08/14 COPD: No - Immunization History Immunization Up to Date: No - Psycho Social/Smoking Cessation Hx Smoking Status: No Smoking History: Never smoked Have you smoked in the past 12 months: No Number of Cigarettes Smoked Daily: 0 Information on smoking cessation initiated: No Hx Alcohol Use: No Drug/Substance Use Hx: No Substance Use Type: None Patient Lives Alone: No Lives with/in: spouse/SO Review of Systems - Review of Systems Able to Perform ROS?: No Is the patient limited Romansh proficient: No Constitutional: Yes: Chills HEENTM: Yes: Nose Congestion, Throat Pain. No: Difficulty Swallowing Respiratory: Yes: Cough Cardiac (ROS): No: Symptoms Reported ABD/GI: No: Symptoms Reported : No: Symptoms Reported Musculoskeletal: No: Symptoms Reported Integumentary: No: Symptoms Reported Neurological: No: Symptoms reported *Physical Exam - Vital Signs Last Vital Signs Temp Pulse Resp BP Pulse Ox 97.8 F 66 18 106/66 100 06/20/19 09:45 06/20/19 09:45 06/20/19 09:45 06/20/19 09:45 06/20/19 09:45 - Physical Exam General Appearance: Yes: Nourished, Appropriately Dressed. No: Apparent Distress HEENT: positive: EOMI, LINN, TMs Normal, Pharynx Normal, Nasal Congestion (Left greater than right with edematous passage). negative: Pale Conjunctivae Neck: positive: Supple Respiratory/Chest: positive: Lungs Clear, Normal Breath Sounds. negative: Chest Tender, Respiratory Distress Cardiovascular: positive: Regular Rhythm, Regular Rate. negative: Murmur Gastrointestinal/Abdominal: positive: Soft. negative: Tenderness Musculoskeletal: negative: CVA Tenderness Extremity: positive: Normal Inspection Integumentary: positive: Normal Color, Warm, Moist Neurologic: positive: Normal Mood/Affect, Motor Strength 5/5 (Ambulatory) ED Treatment Course - ADDITIONAL ORDERS Additional order review: Laboratory Results 06/20/19 10:47 POC Glucometer 81 06/20/19 10:47 POC Glucometer 81 Medical Decision Making - Medical Decision Making 06/20/19 11:27 Chief complaint: Headache, nasal congestion, runny nose, sore throat and cough for the past 2 days patient while in triage became dizzy and fell. Patient had no LOC. Patient has no complaints at this time for chest pain, dizziness, nausea or weakness Exam: Patient with normal focal exam vital signs stable Plan: Influenza swab. Patient was scheduled for an MRI today in the city secondary to headaches. Patient unable to make appointment. Called MRI here at [facility] and was able to have her scheduled for Wednesday at 630 for brain MRI with contrast as per Rx 06/20/19 12:29 Laboratory Tests 06/20/19 11:10 Influenza A (Rapid) Negative Influenza B (Rapid) Negative Patient be discharged home with a nasal decongestant nasal spray Discharge - Discharge Information Problems reviewed: Yes Clinical Impression/Diagnosis: Nasal congestion, Sinus headache Condition: Stable Disposition: HOME - Follow up/Referral - Patient Discharge Instructions Patient Printed Discharge Instructions: DI for Nasal Congestion Additional Instructions: I recommend using nasal spray as ordered to decrease nasal congestion and nasal bleeding Follow-up on Wednesday at 6:30 PM here at [facility] for MRI as scheduled - Post Discharge Activity
[2019-06-20 13:01] VITALS: BP 106/73; PULSE 72; TEMP 98
== END 2019-06-20 12:36 | disposition home or self-care (01) ==
LOC: JERFT 09:26 → JER 09:26
DX: R51 Headache (principal); R09.81 Nasal congestion
CPT/HCPCS: 82962; 87804; 99282-25